=== PATIENT | female | born 1990 | race Caucasian/White ===

== ENCOUNTER 2017-01-21 02:49 | Emergency (ER) | payer OTHER ==
[~2017-01-21] VITALS: Ht 162.6 cm; Wt 102.0 kg
[2017-01-21] MEDS ORDERED: PROZAC40 MG PO (02:58)
== END 2017-01-21 03:50 | disposition home or self-care (01) ==
LOC: SED 02:49
DX: H60.8X2 Other otitis externa, left ear (principal); F17.200 Nicotine dependence, unspecified, uncomplicated; Z79.899 Other long term (current) drug therapy
CPT/HCPCS: 99283